=== PATIENT | female | born 1965 | race Caucasian/White ===

== ENCOUNTER 2024-11-22 00:53 | Day surgery (SDC) | payer BC, SELFPAY ==
[2024-11-08 13:29] VITALS: BMI 31.7
--- NOTE | 2024-11-16 09:51 | PC.NURSE ---
Pt stated during pre-interview that she was not completely cleaned out and has issue with constipation. I have called patient twice and left messages to all me back to discuss 2 day prep. She has not returned call as of 11/16/24.
[2024-11-22 10:31] VITALS: BP 132/71; PULSE 59; RESP 20; TEMP 36.3; O2SAT 100
[2024-11-22] MEDS: LACTATED RINGERS 1,000 ML 150 ML IV CONT (10:36)
[2024-11-22 10:37] LABS: BEDSIDEPREGUCG Negative (Negative)
--- NOTE | 2024-11-22 10:37 | WPDANESEPPF ---
Anes - Initial Pre Proc Eval Procedure: Operation Date: 11/22/24 13:30 Proposed Procedures p Esophagogastroduodenoscopy & Colonoscopy - Francisco Boogie MD Date/Time: 11/22/24 10:37 Surgeon: Francisco Boogie MD Pre Op Diagnosis: IBS Patient Data Age: 59 Gender: F Height: 1.7 m Weight: 97.2 kg Last Vital Signs Temp 36.3 C L 11/22/24 10:31 Pulse 59 L 11/22/24 10:31 Resp 20 11/22/24 10:31 BP 132/71 11/22/24 10:31 Pulse Ox 100 11/22/24 10:31 O2 Del Method Room Air 11/22/24 10:31 Allergies Allergy/AdvReac Type Severity Reaction Status Date / Time Penicillins Allergy Unknown Verified 11/22/24 10:28 Home Medications ?Medication ?Instructions ?Recorded ?Confirmed ?Type atorvastatin 10 mg tablet 10 mg PO DAILY 10/15/21 11/22/24 History carbamazepine 200 mg 200 mg PO Q12H 10/15/21 11/22/24 History capsule,extended release [id number] carboxymethylcellulose sodium 0.25 1 drp EACH EYE BID 10/15/21 11/22/24 History % eye drops (TheraTears) cyanocobalamin (vitamin B-12) 100 mcg subcut MONTHLY 10/15/21 11/08/24 History 1,000 mcg/mL injection solution fluocinolone 0.01 % shampoo 30 ml topical DAILY 10/15/21 11/22/24 History lidocaine HCl 2 % mucosal solution 1 applic mucous membrane BID 10/15/21 11/22/24 History (Lidocaine Viscous) magnesium oxide 400 mg PO DAILY 10/15/21 11/22/24 History metoprolol succinate 50 mg 50 mg PO DAILY 10/15/21 11/22/24 History tablet,extended release 24 hr omega-3 fatty acids-fish oil 360 1 cap PO DAILY 10/15/21 11/22/24 History mg-1,200 mg capsule (Fish Oil) paroxetine HCl 40 mg tablet 40 mg PO DAILY 10/15/21 11/22/24 History pregabalin 150 mg capsule (Lyrica) 150 mg PO BID 10/15/21 11/22/24 History tretinoin 0.05 % topical cream 1 applic topical QHS 10/15/21 11/22/24 History dupilumab 300 mg/2 mL subcutaneous 300 mg subcut .twice weekly 11/08/24 11/08/24 History pen injector (Dupixent) Laboratory Tests 11/22/24 10:35 POC Urine HCG, Qual Pending Patient hx anesthesia problems: none Family hx anesthesia problems: none Results Review: All pre-operative results and documents have been reviewed as part of the pre-operative evaluation. [facility] Past Medical History Medical History (Updated 11/22/24 @ 10:37 by Jose G Angelo MD) Obesity Hyperlipidemia Cervical fusion syndrome (~2015) Surgical History Surgical History (Updated 10/15/21 @ 10:58 by Anel Blanco) History of cholecystectomy (~2005) Family History Family History Grandparent Rheumatoid arthritis Other Breast cancer Social History Social History Years smoked: 23 Smoking status: Former smoker Tobacco type: cigarettes Smoking end date: 08/21/06 Additional smoking assessment comments: social smoking on and off for 23 years Alcohol intake: never Substance use: never Spiritual care concerns: No Anes - Eval Final PreProcedure Day of Procedure 11/22/24 10:37 Patient weight: obese Heart: regular rate and rhythm Lungs: clear to auscultation Airway: Mallampati scale class II Neurological: alert and oriented Last oral intake: >/= 8 hours ASA classification: III Emergent: no Anesthetic plan: proceed Anesthesia type and monitoring: general GIVS and standard monitoring Results Review: All pre-operative results and documents have been reviewed as part of the pre-operative evaluation. Informed Consent: The patient's anesthetic plan and its attendant risks and benefits were discussed with the patient/family/POA. Questions were solicited and answers provided to the satisfaction of the patient/family/POA.
--- NOTE | 2024-11-22 10:55 | PM.HPGS ---
History of Present Illness History of Present Illness Consent: Risks, benefits, and alternatives have been discussed and questions answered. Patient agrees to proceed with procedure. Chief complaint: IBS Narrative: Esther Larry is a 59 year old female with h/o gastric intestinal metaplasia due for surveillance, also noted rectal bleeding- last colonoscopy about 5 years. Review of Systems Review of Systems: All systems reviewed & are unremarkable except as noted in HPI and below PMFSH Past Medical History Medical History (Updated 11/22/24 @ 10:57 by Francisco Boogie MD) Blood in stool Gastric intestinal metaplasia Obesity Hyperlipidemia Cervical fusion syndrome (~2015) Surgical History Surgical History (Updated 10/15/21 @ 10:58 by Anel Blanco) History of cholecystectomy (~2005) Family History Family History Grandparent Rheumatoid arthritis Other Breast cancer Social History Social History Years smoked: 23 Smoking status: Former smoker Tobacco type: cigarettes Smoking end date: 08/21/06 Additional smoking assessment comments: social smoking on and off for 23 years Alcohol intake: never Substance use: never Spiritual care concerns: No Meds Home Medications and Allergies Home Medications ?Medication ?Instructions ?Recorded ?Confirmed ?Type atorvastatin 10 mg tablet 10 mg PO DAILY 10/15/21 11/22/24 History carbamazepine 200 mg 200 mg PO Q12H 10/15/21 11/22/24 History capsule,extended release [id number] carboxymethylcellulose sodium 0.25 1 drp EACH EYE BID 10/15/21 11/22/24 History % eye drops (TheraTears) cyanocobalamin (vitamin B-12) 100 mcg subcut MONTHLY 10/15/21 11/08/24 History 1,000 mcg/mL injection solution fluocinolone 0.01 % shampoo 30 ml topical DAILY 10/15/21 11/22/24 History lidocaine HCl 2 % mucosal solution 1 applic mucous membrane BID 10/15/21 11/22/24 History (Lidocaine Viscous) magnesium oxide 400 mg PO DAILY 10/15/21 11/22/24 History metoprolol succinate 50 mg 50 mg PO DAILY 10/15/21 11/22/24 History tablet,extended release 24 hr omega-3 fatty acids-fish oil 360 1 cap PO DAILY 10/15/21 11/22/24 History mg-1,200 mg capsule (Fish Oil) paroxetine HCl 40 mg tablet 40 mg PO DAILY 10/15/21 11/22/24 History pregabalin 150 mg capsule (Lyrica) 150 mg PO BID 10/15/21 11/22/24 History tretinoin 0.05 % topical cream 1 applic topical QHS 10/15/21 11/22/24 History dupilumab 300 mg/2 mL subcutaneous 300 mg subcut .twice weekly 11/08/24 11/08/24 History pen injector (Dupixent) Allergies Allergy/AdvReac Type Severity Reaction Status Date / Time Penicillins Allergy Unknown Verified 11/22/24 10:28 Vital Signs Vital Signs - 24 hr 11/22/24 10:31 Temperature 97.4 F L Pulse Rate 59 L Respiratory Rate 20 Blood Pressure 132/71 Pulse Oximetry 100 Oxygen Delivery Room Air Exam Const: General: comfortable and no acute distress HENMT: Face/Nose/Sinus: Normal nares present Eyes: General: appearance normal, both eyes and all related structures Neck: Neck: no JVD Resp: Auscultation: clear to auscultation bilaterally Cardio: Rate: regular rate Rhythm: regular rhythm GI: Inspection: non-distended GI Palp: Yes Soft to palpation Skin: General skin exam: normal color Neuro: Speech: normal speech Extrem: General: normal to inspection Psych: Mental Status: mental status grossly normal Assessment and Plan Assessment and plan (1) Gastric intestinal metaplasia: Code(s): K31.A0 - Gastric intestinal metaplasia, unspecified Status: Acute Assessment and Plan: egd with random bx (2) Blood in stool: Code(s): K92.1 - Melena Status: Acute Assessment and Plan: colonoscopy
--- NOTE | 2024-11-22 11:06 | SUR.OPER ---
EGD end 1103 COLONSCOPY START 1107
[2024-11-22 11:14] VITALS: BP 98/52; PULSE 59; RESP 15; O2SAT 100
[2024-11-22 11:24] VITALS: BP 105/60; PULSE 60; RESP 19; O2SAT 100
[2024-11-22 11:34] VITALS: BP 101/57; PULSE 56; RESP 16; O2SAT 100
== END 2024-11-22 11:48 | disposition home or self-care (01) ==
PROVIDERS: Anesthesiology; PCP Family Medicine; Referring Provider Family Medicine; Visit Provider Internal Medicine Gastroenterology
PROC: 0DJ08ZZ Inspection of Upper Intestinal Tract, Via Natural or Artificial Opening Endoscopic (ICD-10-PCS; CPT 45378; principal; 2024-11-22 13:30)
DX: Z12.11 Encounter for screening for malignant neoplasm of colon (principal); K63.5 Polyp of colon; K64.8 Other hemorrhoids; K29.50 Unspecified chronic gastritis without bleeding; K31.89 Other diseases of stomach and duodenum; E78.2 Mixed hyperlipidemia; E66.9 Obesity, unspecified; Z68.33 Body mass index [BMI] 33.0-33.9, adult; Z79.85 Long-term (current) use of injectable non-insulin antidiabetic drugs; Z98.890 Other specified postprocedural states; Z90.49 Acquired absence of other specified parts of digestive tract; Z98.1 Arthrodesis status; Z87.891 Personal history of nicotine dependence; Z87.19 Personal history of other diseases of the digestive system; Z80.3 Family history of malignant neoplasm of breast
CPT/HCPCS: 45380; 43239; 88305; J2704; J7120